=== PATIENT | female | born 1935 | race Caucasian/White ===

== ENCOUNTER 2019-08-02 11:40 | Inpatient (IN) | payer MEDICARE ==
[~2019-08-02] VITALS: Ht 170.2 cm; Wt 104.3 kg
[~2019-08-02 11:40] MED LIST: AMLODIPINE BESYL5 MG PO; DONEPEZIL HCL10 MG PO; FLOMAX0.4 MG PO; KEFLEX500 MG PO; LITHIUM CARBON300 M1 PO; MONTELUKAST SOD10 MG PO; OMEPRAZOLE40 MG PO; QUETIAPINE FUM200 MG PO; ROSUVASTATIN CA10 MG PO; ULTRAM 50MG50 MG PO
--- NOTE | 2019-08-02 13:35 | Diagnostic Imaging Report ---
Portable chest. Medical history: M.D. order. Comparison study: July 23, 2019. Findings: The cardiac silhouette is borderline enlarged. Some prominent soft tissue is seen in the left paratracheal region but this could be positional in nature as it was not present on chest x-ray 1 week prior. No pleural effusion or pneumothorax is seen. There are mild interstitial markings. Degenerative changes are noted. Impression: 1. Prominent soft tissue in the left paratracheal region which could be positional in nature as this was not present on chest x-ray 1 week prior. A PA/lateral radiograph is recommended to confirm. Alternatively, CT scan could be performed. No other significant change. Signed by: Jake Cervantes MD on 08/02/2019 1:33 PM
--- NOTE | 2019-08-02 13:39 | Diagnostic Imaging Report ---
Exam: Head CT without contrast History: Altered mental status Comparison studies: Head CT 07/23/2019. Technique: Axial images were obtained from the skull base to the vertex. Coronal and sagittal images reconstructed from the axial data. Dose modulation, iterative reconstruction, and/or weight based adjustment of the mA/kV was utilized to reduce the radiation dose to as low as reasonably achievable. Radiation dose: Total DLP: 921.4 mGy*cm. Estimated effective dose: DLP x 0.015 Intravenous contrast: None Findings: Exam is somewhat limited by artifacts related to patient motion. In spite of limitations: Scalp: No abnormalities. Bones: No fractures, blastic or lytic lesions. Brain sulci: Appropriate for age. Ventricles: No hydrocephalus. Extra-axial spaces: No masses, no fluid collection. Parenchyma: No mass, acute hemorrhage or acute or chronic cortical insults. Ill-defined and mildly confluent hypodensities in the supratentorial white matter are nonspecific but are most compatible with chronic microvascular ischemic changes Sellar/suprasellar region: No abnormalities. Craniocervical junction: Patent foramen magnum. No Chiari one malformation. Included paranasal sinuses: Clear. Middle ear and included mastoid cavities: Clear. IMPRESSION: 1. No acute intracranial abnormalities. 2. No changes from the prior head CT of 07/23/2019. 3. Mild to moderate chronic microvascular ischemic changes. Signed by: Dr. Salvatore Joya M.D. on 08/02/2019 1:37 PM
[2019-08-02 13:48] LABS: BASOPHILS % 0.3 % (0.0-1.0); EOSINOPHILS # (AUTO) 0.2 (0.0-0.4); EOSINOPHILS % 3.5 % (0.0-6.0); HEMATOCRIT 38.8 % (34.2-44.1); HEMOGLOBIN 12.5 g/dL (12.0-16.0); LYMPHOCYTES # (AUTO) 1.9 (1.0-3.2); LYMPHOCYTES % 28.2 % (18.0-39.1); MEAN CORPUSCULAR HEMOGLOBIN 32.8 pg (28-32); MEAN CORPUSCULAR HGB CONC 32.2 g/dL (31-35); MEAN CORPUSCULAR VOLUME 101.8 fL (81-99); MONOCYTES # (AUTO) 0.5 (0.2-0.8); NEUTROPHILS % 59.8 % (38.7-80.0); PLATELET COUNT 203 x10e3/uL (140-360); RED BLOOD COUNT 3.81 x10e6/uL (3.6-5.1)
[2019-08-02 13:54] LABS: INR 0.93
[2019-08-02 13:55] LABS: PARTIAL THROMBOPLASTIN TIME 29.9 seconds (23.8-35.5)
[2019-08-02 14:03] LABS: ALANINE AMINOTRANSFERASE 10 IU/L (0-55); ALBUMIN 3.9 g/dL (3.5-5.0); ALBUMIN/GLOBULIN RATIO 1.1 (0.8-2.0); ALKALINE PHOSPHATASE 83 IU/L (40-150); BLOOD UREA NITROGEN 17 mg/dL (7-26); BUN/CREATININE RATIO 15 (6-25); CALCIUM 11.6 mg/dL (8.4-10.2); CARBON DIOXIDE 22 mmol/L (22-29); CHLORIDE 106 mmol/L (98-107); CREATINE KINASE 12 IU/L (29-168); CREATININE, SERUM 1.11 mg/dL (0.57-1.11); EST GLOMERULAR FILTRATION RATE 47 ML/MIN (60-); GLUCOSE 104 mg/dL (74-118); MAGNESIUM 2.1 MG/DL (1.3-2.1); SODIUM 139 mmol/L (136-145)
[2019-08-02 14:28] LABS: CLARITY,URINE SL CLOUDY (CLEAR); COLOR,URINE YELLOW (YELLOW); LEUKOCYTE ESTERASE ,URINE TRACE (NEGATIVE); NITRITE,URINE NEGATIVE (NEGATIVE); PROTEIN,URINE DIPSTICK NEGATIVE (NEGATIVE)
[2019-08-02 14:29] LABS: BILIRUBIN,URINE 1+ (NEGATIVE); KETONES,URINE NEGATIVE (NEGATIVE); URINE UROBILINOGEN 0.2 mg/dL (0.2 - 1)
[2019-08-02 14:34] LABS: CREATINE KINASE MB < 1.00 ng/mL (0-4.3)
[2019-08-02 14:40] LABS: AMORPHOUS SEDIMENT,URINE MODERATE (FEW); BACTERIA,URINE MODERATE /HPF; RBC,URINE 0-5 /HPF (0-5); YEAST,URINE MODERATE
--- NOTE | 2019-08-02 16:10 | NUR ---
ENTERED ROOM TO DISCUSS PATIENT HOME MEDS. PT'S HOME MEDS NOT WITH PT. WHEN ASKED FAMILY WAS TOLD "HER MEDS ARE IN THE MEDICAL RECORD" RESTATED QUESTION ASKING ABOUT FAMILY FAMILIARITY WITH PT'S HOME MEDICATION. PT'S FAMILY AGAIN RESPONDED THAT "YOU HAVE HER MEDICAL HISTORY IN HER CHART". ASKED IF THERE WAS ANY CHANGE IN HER SCRIPTS AFTER BEING DISCHARGED FROM THE HOSPITAL AND WAS TOLD NO THERE WAS NO CHANGES. EXPRESSED TO FAMILY THAT IT WAS ALWAYS GOOD PRACTICE TO KNOW HOME MEDICATIONS FOR INSTANCES THAT PATIENT'S MEDICAL CHART IS NOT AVAILABLE. WAS RESPONDED TO BY FAMILY MEMBER "I AM A NURSE, I KNOW THIS"
[2019-08-02] MEDS: DEXTROSE 5%/LACTATED RINGERS 1,000 ML IV SCH (16:15)
--- NOTE | 2019-08-02 18:11 | NUR ---
received patient from ER via stretcher. pt is alert, not oriented. pt's speech is incomprehensible and pt is agitated and combative. pt was transferred from stretcher to bed by the nurse and tech. diaper was applied to patient. iv was wrapped with kurlex to prevent the pt from pulling it. bad safety implemented. daughter is at the bedside
[2019-08-02] MEDS ORDERED: TRAMADOL HCL 50 MG TAB PO PRN (18:15)
--- NOTE | 2019-08-02 19:00 | NUR ---
Received change of shift report from AM nurse. Walking rounds completed.
[2019-08-02] MEDS: QUETIAPINE FUMARATE 100 MG TAB PO SCH (19:03)
[2019-08-02 19:24] VITALS: BP 144/67
[2019-08-02 19:30] VITALS: BP 144/67
[2019-08-02 20:13] VITALS: BP 119/41
[2019-08-02] MEDS: CRESTOR 10MG PO SCH (21:00)
[2019-08-03] VITALS (7 sets, daily range): BP systolic 99–161; BP diastolic 50–78
--- NOTE | 2019-08-03 | NUR ---
Patient very confused. Refused po meds. Get very agitated when touched. Patient turned q 2 hours and prn. Daughter at bedside at this time. Continue monitor.
[2019-08-03] MEDS: DONEPEZIL HCL 5 MG TAB PO SCH (04:34)
--- NOTE | 2019-08-03 05:00 | NUR ---
Patient resting quitly at this time.
[2019-08-03 05:40] LABS: BASOPHILS % 0.3 % (0.0-1.0); EOSINOPHILS # (AUTO) 0.3 (0.0-0.4); EOSINOPHILS % 5.2 % (0.0-6.0); HEMATOCRIT 37.4 % (34.2-44.1); LYMPHOCYTES # (AUTO) 2.2 (1.0-3.2); LYMPHOCYTES % 34.2 % (18.0-39.1); MEAN CORPUSCULAR HEMOGLOBIN 32.9 pg (28-32); MEAN CORPUSCULAR HGB CONC 32.1 g/dL (31-35); MEAN CORPUSCULAR VOLUME 102.5 fL (81-99); MONOCYTES # (AUTO) 0.7 (0.2-0.8); MONOCYTES % 10.7 % (4.4-11.3); NEUTROPHILS # (AUTO) 3.1 (2.1-6.9); NEUTROPHILS % 49.3 % (38.7-80.0); PLATELET COUNT 175 x10e3/uL (140-360); RED BLOOD COUNT 3.65 x10e6/uL (3.6-5.1)
[2019-08-03 06:04] LABS: ALBUMIN 3.4 g/dL (3.5-5.0); ALBUMIN/GLOBULIN RATIO 1.2 (0.8-2.0); ANION GAP 13.2 mmol/L (8-16); CALCIUM 10.8 mg/dL (8.4-10.2); CREATININE, SERUM 1.05 mg/dL (0.57-1.11); POTASSIUM 4.2 mmol/L (3.5-5.1)
--- NOTE | 2019-08-03 07:18 | NUR ---
BEDSIDE SHIFT REPORT RECEIVED FROM ENERGY ADVISOR RN, PT RESTING IN BED, RESPIRATIONS EVEN AND NONLABORED, NO SIGNS OF DISTRESS. ALL SAFETY MEASURES IN PLACE.
[2019-08-03] MEDS: PANTOPRAZOLE SOD 40 MG TABEC PO SCH (07:30)
[2019-08-03] MEDS: TAMSULOSIN HCL 0.4 MG CAP PO SCH (09:00)
[2019-08-03] MEDS: AMLODIPINE BESYLATE 5 MG TAB PO SCH (09:00)
[2019-08-03] MEDS: MONTELUKAST SODIUM 10 MG TAB PO SCH (09:00)
[2019-08-03] MEDS: LITHIUM CARBONATE ER 300 MG TAB PO SCH (09:00)
--- NOTE | 2019-08-03 10:13 | NUR ---
speech pathology at bedside, states pt adamantly refused anything PO. recommended regular thin liquids if pt allows. recommends any essential medicines be given IV at this time. will inform .
--- NOTE | 2019-08-03 10:46 | NUR ---
WOUND CARE CONSULT COMPLETED BY ROWENA RUDD. STATES PT'S SACRAL WOUND IS BLANCHABLE. RECOMMENDS CONTINUING TO TURN PATIENT. NO OTHER INTERVENTIONS RECOMMENDED AT THIS TIME.
--- NOTE | 2019-08-03 10:58 | NUR ---
BEDSIDE BLADDER SCAN SHOWED 0 ML RETAINED URINE; PT VOIDING IN DIAPER. COLOSTOMY EMPTIED, 30 ML OF LIQUID BROWN STOOL NOTED WITH MODERATE AMOUNT OF GAS.
--- NOTE | 2019-08-03 13:21 | NUR ---
WOUND CONSULT FOR 84 YO FEMALE SKIN ASSESSMENT COMPLETE NO INJURIES OR OPEN AREAS NOTED AT THIS TIME RECOMMENDATIONS: NURSING TO CONTINUE TO MAINTAIN MODERATE PUP STATUS AND INTERVENTIONS AND ALTERNATING PRESSURE MATTRESS NURSING TO CONTINUE TO ASSIST PATIENT OUT OF BED TOLERATED NURSING TO CONTINUE TO ASSIST PATIENT TO TURN WHILE IN BED EVERY 2 HOURS Addendum: 08/03/19 at 1324 by Ran Mcdonough RN Amended: Links added.
[2019-08-03] MEDS: LORAZEPAM INJ 2 MG/ML VIAL IV PRN (14:07)
--- NOTE | 2019-08-03 14:11 | NUR ---
pt going down for CT scan; 1mg Ativan given prior to transport. pt left in stable condition.
--- NOTE | 2019-08-03 15:05 | NUR ---
Pt was visited for PT eval but very lethargic from the medication given to her prior to CT scan. Spouse and son requested to let pt sleep for now and for PT to come back tomorrow. Pt had a rough night in the ER yesterday evening. ROWENA Alfaro made aware. Addendum: 08/04/19 at 1656 by Sergio Krishnamurthy PT Amended: Links added.
[2019-08-03] MEDS: HEPARIN SOD (PORCINE) 5,000 UNIT/ML VIAL SC SCH (15:09)
[2019-08-03] MEDS: CEFTRIAXONE SOD 1 GM/NS 50 ML 50 ML IV SCH (15:20)
--- NOTE | 2019-08-03 15:33 | Diagnostic Imaging Report ---
CT of the abdomen and pelvis, without contrast, 08/03/2019. History: Diarrhea, altered mental status. Comparison: None available. Technique: Multidetector CT scanning of the abdomen and pelvis was performed from the level of the lung bases to the inferior pubic rami without intravenous or oral contrast. Coronal and sagittal multiplanar reformations were obtained. RADIATION DOSE: Total DLP: 875 mGy*cm Dose modulation, iterative reconstruction, and/or weight based adjustment of the mA/kV was utilized to reduce the radiation dose to as low as reasonably achievable. Discussion: Examination is limited without contrast. Lung bases: No visualized abnormalities. Abdomen: A small stone is present within the gallbladder. There is no gallbladder wall thickening. The liver, biliary tree, spleen, pancreas, adrenal glands, and kidneys are unremarkable. The abdominal aorta is within normal limits. There is no bowel dilatation. Right lower quadrant ileostomy and left lower quadrant colostomy are present. The ascending and transverse colon are absent. Multiple diverticuli are present within the descending and sigmoid colon without evidence of adjacent inflammation There is no evidence of adenopathy or free fluid. Pelvis: The bladder is unremarkable. The uterus and adnexa are absent. Multiple surgical clips are present within the pelvis bilaterally. There is no evidence of free fluid or adenopathy. Bones and soft tissues: Degenerative changes are present throughout the lumbar spine without evidence of lytic or sclerotic lesion. IMPRESSION: 1. Cholelithiasis. 2. Partial colectomy. Ileostomy and colostomy are both present. Distal colonic diverticulosis is present without evidence of diverticulitis. 3. Status post hysterectomy. Signed by: Dmitriy Ewing on 08/03/2019 3:31 PM
--- NOTE | 2019-08-03 15:41 | Consultation ---
DATE OF CONSULTATION: 08/03/2019 PRIMARY CARE PHYSICIAN: Dr. Dorman. CHIEF COMPLAINT: Altered mental status and generalized weakness. HISTORY OF PRESENT ILLNESS: This is an 84-year-old female with past medical history of hypertension, high cholesterol, bipolar, Alzheimer, and frequent UTI, presented to the ER with complaints of increased altered mental status per spouse at the bedside. The patient is a poor historian and is mumbling. and son are at the bedside and obtained information from them. They reported she has had multiple UTIs, has had bladder suspension for urine retention. He reports that she has not been eating or drinking well and so they brought her to the ER for further evaluation. They denied any fever, chills, nausea, vomiting, or chest pain. Admitted for further evaluation. PAST MEDICAL HISTORY: High cholesterol, hypertension, bipolar, and Alzheimer. PAST SURGICAL HISTORY: She had bladder suspension per family, colon resection with colostomy and ileostomy, and hernia repair and hysterectomy several years ago. FAMILY MEDICAL HISTORY: Reports psychiatric illness in the family. SOCIAL HISTORY: Denies any tobacco, alcohol, or illicit drug use. ALLERGIES: NO KNOWN DRUG ALLERGIES. REVIEW OF SYSTEMS: Unable to obtain due to altered mental status. PHYSICAL EXAMINATION: VITAL SIGNS: Temperature 95.3, pulse is 69, respirations 18, blood pressure 161/71, and pulse ox is 97% on room air. GENERAL: Fatigue. HEENT: Normocephalic and atraumatic. NECK: Supple. LUNGS: Decreased breath sounds. CARDIOVASCULAR: Regular rate and rhythm. GI: Soft and nontender. Colostomy and ileostomy bag in place. NEUROLOGIC: Altered mental status, alert and awake. MUSCULOSKELETAL: Moves extremities, but is very weak and sensitive to touch. SKIN: Dry. PSYCH: Altered mental status. Unable to evaluate. LABORATORY DATA: WBC 6.37, hemoglobin 12.0, hematocrit 37.4, MCV 102.5, and MCH 32.9. Sodium 142, potassium 4.2, BUN is 13, creatinine is 1.05, and estimated GFR 50. AST 29 and ALT 16. BNP is 24.4. Troponin 0.05. Total protein 6.2, albumin 3.4, and globulin 2.8. PT 13.0, INR 0.93, and APTT 29.9. Urine is yellow, slightly cloudy with trace blood and leukocyte esterase with moderate bacteria, amorphous sediment, and yeast. Urine culture is pending as well as blood cultures. Chest x-ray shows prominent soft tissue in the left paratracheal region, which could be positional in nature, as this was not present on chest x-ray one week prior. AP/lateral radiograph is recommended to confirm. Alternatively, CT scan could be performed. No other significant changes. CT brain shows no acute intracranial abnormalities. No changes from prior head CT. [id number] chronic microvascular changes. IMPRESSION AND PLAN: 1. Increased altered mental status. Could be from urinary tract infection versus advanced dementia. CT brain was negative for acute process. Continue on IV fluids and IV antibiotics, Rocephin. 2. Hypertension. We will continue on amlodipine. 3. High cholesterol. We will continue with Crestor. 4. History of bipolar. We will continue on lithium and Seroquel. 5. Poor appetite. Speech therapist has been consulted to evaluate and treat. 6. Deep vein thrombosis prophylaxis. We will order heparin b.i.d. PLAN: To continue IV fluids and we will check CT abdomen and pelvis, as family is concerned she may have abdominal infection. We will await on urine culture as well. Dictated by LADARIUS Keys Promise Clark MD MY/MODL /[id number]
[2019-08-03] MEDS: DEXTROSE 5%/LACTATED RINGERS 1,000 ML IV SCH ×2 (18:40→22:08)
--- NOTE | 2019-08-03 19:53 | NUR ---
Received change of shift report from AM nurse. Walking rounds completed.
[2019-08-03] MEDS: CRESTOR 10MG PO SCH (21:00)
[2019-08-03] MEDS: QUETIAPINE FUMARATE 100 MG TAB PO SCH (21:00)
[2019-08-04] VITALS (7 sets, daily range): BP systolic 114–177; BP diastolic 61–81
--- NOTE | 2019-08-04 | NUR ---
Patient turned q2 hours and PRN. Patient resting quitly with no noted distress.
[2019-08-04] MEDS: HEPARIN SOD (PORCINE) 5,000 UNIT/ML VIAL SC SCH ×2 (00:30→12:18)
--- NOTE | 2019-08-04 05:00 | NUR ---
Patient continue to be confused. Attemp to orientate patient. No noted improvement.
[2019-08-04] MEDS: DONEPEZIL HCL 5 MG TAB PO SCH (05:18)
--- NOTE | 2019-08-04 07:40 | NUR ---
PATIENT IS ALERT TO SELF BUT REMAINS CONFUSED. PATIENT IS IN STABLE CONDITION WITH NO S/S OF RESPIRATORY DISTRESS. NO PAIN VOICED. ILEOSTOMY AND COLOSTOMY NOTED TO ABD WALL.- LIQUID BROWN STOOL NOTED TO RLU BAG. PATIENT HAS A HEALING SACRUM WOUND- BLANCHABLE REDNESS NOTED. AIR PUMP APPLIED TO BED. IV FLUIDS INFUSING. BED ALARM APPLIED AND 3 SIDE RAILS AREA RAISED FOR PATIENT SAFETY. CALL LIGHT IS WITHIN REACH, PATIENT INSTRUCTED TO CALL FOR ASSISTANCE NEEDED.
[2019-08-04] MEDS: AMLODIPINE BESYLATE 5 MG TAB PO SCH (08:44)
[2019-08-04] MEDS: TAMSULOSIN HCL 0.4 MG CAP PO SCH (08:44)
[2019-08-04] MEDS: PANTOPRAZOLE SOD 40 MG TABEC PO SCH (08:44)
[2019-08-04] MEDS: LITHIUM CARBONATE ER 300 MG TAB PO SCH (08:44)
[2019-08-04] MEDS: MONTELUKAST SODIUM 10 MG TAB PO SCH (08:45)
[2019-08-04] MEDS: CEFTRIAXONE SOD 1 GM/NS 50 ML 50 ML IV SCH (12:15)
[2019-08-04] MEDS: DEXTROSE 5%/LACTATED RINGERS 1,000 ML IV SCH (15:39)
--- NOTE | 2019-08-04 17:45 | Progress Note ---
DATE: 08/04/2019 CONSULTING PHYSICIAN: Blanco Yeager MD CHIEF COMPLAINT: Altered mental status and generalized weakness. SUBJECTIVE: The patient is seen in the room, much more alert and awake. Spouse at the bedside. Reports the patient's mentation is slightly improved. Eating better. Denies any nausea, vomiting, chest pain, shortness of breath, fever, or chills. OBJECTIVE: VITAL SIGNS: Temperature 96.7, pulse is 66, respirations 18, blood pressure 143/63, pulse ox is 97% on room air. GENERAL: Fatigue. HEENT: Normocephalic and atraumatic. NECK: Supple. LUNGS: Decreased breath sounds. CARDIOVASCULAR: Regular rate and rhythm. GI: Soft and nontender. Colostomy and ileostomy bag in place. NEUROLOGIC: Alert and awake with altered mental status due to history of dementia and bipolar. MUSCULOSKELETAL: Moves all extremities, but weak. SKIN: Dry. PSYCH: Altered mental status. IMAGING DATA: CT abdomen and pelvis shows cholelithiasis, partial colectomy, ileostomy and colostomy with distal colonic diverticulosis, but no diverticulitis, status post hysterectomy. IMPRESSION: 1. Altered mental status. Now improving. CT brain negative for acute process. Likely due to urinary tract infection. 2. Recurrent urinary tract infections. Urine culture shows gram-negative rods and yeast. We will continue on Rocephin and await on final cultures. 3. Hypertension. Continue on amlodipine. 4. High cholesterol. We will continue on Crestor. 5. History of bipolar. We will continue on lithium and Seroquel. 6. Poor appetite/dysphagia. Speech therapist has evaluated her and recommend pureed diet and thin liquids, which we will continue. 7. Debility. Physical Therapy has been consulted to evaluate and treat. 8. History of dementia. We will continue with home medications. 9. Deep vein thrombosis prophylaxis. We will continue on heparin b.i.d. subcu. PLAN: Plan is to continue with IV fluids and IV antibiotics. Await on final urine cultures and recommend Psych eval here or outpatient. Dictated by LADARIUS Keys Promise Clark MD MY/MODL /[id number]
--- NOTE | 2019-08-04 19:17 | NUR ---
PATIENT RESTING IN BED- TURNED TO HER RIGHT SIDE. PATIENT REMAINS IN STABLE CONDITION WITH NO S/S OF RESPIRATORY DISTRESS. PAIN MEDICATION GIVEN RECENTLY. IV FLUIDS INFUSING. TELEMETRY APPLIED. ALLEVYN PAD AND DIAPER APPLIED. BED ALARM APPLIED. CALL LIGHT IS WITHIN REACH, PATIENT INSTRUCTED TO CALL FOR ASSISTANCE NEEDED. BEDSIDE SHIFT REPORT GIVEN TO ONCOMING NURSE.
--- NOTE | 2019-08-04 19:38 | NUR ---
Received change of shift report from AM nurse. Walking rounds completed.
[2019-08-04] MEDS: QUETIAPINE FUMARATE 100 MG TAB PO SCH (21:00)
[2019-08-04] MEDS: CRESTOR 10MG PO SCH (21:00)
[2019-08-05] VITALS (8 sets, daily range): BP systolic 113–156; BP diastolic 58–95
--- NOTE | 2019-08-05 | NUR ---
Patient turned q 2 hours and prn. Continue to be confused but shows some improvement.
[2019-08-05] MEDS: HEPARIN SOD (PORCINE) 5,000 UNIT/ML VIAL SC SCH ×2 (00:27→13:12)
[2019-08-05] MEDS: DONEPEZIL HCL 5 MG TAB PO SCH (05:44)
--- NOTE | 2019-08-05 07:25 | NUR ---
PATIENT IS IN STABLE CONDITION WITH NO S/S OF RESPIRATORY DISTRESS- NO PAIN VOICED. IV FLUIDS INFUSING. ALLEVYN PAD APPLIED TO SACRUM/BUTTOCK AREA. PATIENT TURNED TO HER LEFT SIDE. BED ALARM APPLIED. CALL LIGHT IS WITHIN REACH, PATIENT INSTRUCTED TO CALL FOR ASSISTANCE NEEDED.
[2019-08-05] MEDS: TAMSULOSIN HCL 0.4 MG CAP PO SCH (08:38)
[2019-08-05] MEDS: LITHIUM CARBONATE ER 300 MG TAB PO SCH (08:38)
[2019-08-05] MEDS: MONTELUKAST SODIUM 10 MG TAB PO SCH (08:38)
[2019-08-05] MEDS: AMLODIPINE BESYLATE 5 MG TAB PO SCH (08:38)
[2019-08-05] MEDS: PANTOPRAZOLE SOD 40 MG TABEC PO SCH (08:38)
--- NOTE | 2019-08-05 11:14 | NUR ---
Went to pt room for home health choice. Pt confused, and nurse at bedside. CM then attempted to call pt Thai Guerra [phone]. No answer. Will attempt to reach again later today. Pt already has [facility].
[2019-08-05] MEDS: CEFTRIAXONE SOD 1 GM/NS 50 ML 50 ML IV SCH (13:11)
--- NOTE | 2019-08-05 16:04 | Progress Note ---
DATE: 08/05/2019 CHIEF COMPLAINT: Altered mental status and generalized weakness. SUBJECTIVE: The patient is continuing to improve with her mentation. Family at bedside. She is eating more and denies any pain, shortness of breath, fever, chills, nausea, or vomiting. OBJECTIVE: VITAL SIGNS: Temperature 97.0, pulse is 69, respirations 16, blood pressure 121/60, and pulse ox is 95% on room air. GENERAL: Fatigue. HEENT: Normocephalic, atraumatic. NECK: Supple. LUNGS: Decreased breath sounds. CARDIOVASCULAR: Regular rate and rhythm. GI: Soft and nontender. Colostomy and ileostomy bag in place. NEUROLOGY: Alert, awake, and oriented x1 to 2. Has baseline dementia. MUSCULOSKELETAL: Moves all extremities, but weak. SKIN: Dry. IMPRESSION: 1. Increased altered mental status, likely due to urinary tract infection. CT brain negative for acute process. We will continue with antibiotics, improving mentation. 2. Recurrent urinary tract infection. Urine culture shows gram-negative rods. Awaiting on identification and sensitivity. We will continue with Rocephin. 3. Hypertension. Continue amlodipine. 4. High cholesterol. Continue on Crestor. 5. History of bipolar. Continue lithium and Seroquel. We will check lithium level in a.m. 6. Poor appetite/dysphagia. Swallowing test done per Speech, recommends pureed. 7. History of dementia. We will resume home medication and have Psych evaluate her. 8. Debility. PT to evaluate and treat. 9. Deep vein thrombosis prophylaxis. We will continue with heparin subcu. PLAN: Continue IV fluids and IV antibiotics. Awaiting on Psych eval and Case Management consulted for home PT/OT. Dictated by LADARIUS Keys Promise Clark MD MY/MODL /[id number]
[2019-08-05] MEDS: DEXTROSE 5%/LACTATED RINGERS 1,000 ML IV SCH ×2 (17:42→20:17)
--- NOTE | 2019-08-05 19:24 | NUR ---
PATIENT IN STABLE CONDITION WITH NO S/S OF RESPIRATORY DISTRESS. NO PAIN VOICED. IV FLUIDS INFUSING. TELEMETRY APPLIED. ALLEVYN PAD AND DIAPER APPLIED. BED ALARM APPLIED. PRESENT IN ROOM. CALL LIGHT IS WITHIN REACH, PATIENT INSTRUCTED TO CALL FOR ASSISTANCE NEEDED. BEDSIDE SHIFT REPORT GIVEN TO ONCOMING NURSE.
[2019-08-05] MEDS: CRESTOR 10MG PO SCH (20:17)
[2019-08-05] MEDS: QUETIAPINE FUMARATE 100 MG TAB PO SCH (20:17)
[2019-08-06] VITALS (9 sets, daily range): BP systolic 137–160; BP diastolic 63–89
[2019-08-06] MEDS: HEPARIN SOD (PORCINE) 5,000 UNIT/ML VIAL SC SCH ×2 (00:49→12:30)
--- NOTE | 2019-08-06 05:29 | NUR ---
2200: Received patient as an add on from another nurse. patient confused but calm, no agitation at this time.
[2019-08-06] MEDS: DONEPEZIL HCL 5 MG TAB PO SCH (05:48)
[2019-08-06 06:12] LABS: ALBUMIN 3.4 g/dL (3.5-5.0); ALBUMIN/GLOBULIN RATIO 1.2 (0.8-2.0); ANION GAP 12.9 mmol/L (8-16); CALCIUM 10.7 mg/dL (8.4-10.2); CREATININE, SERUM 0.99 mg/dL (0.57-1.11); POTASSIUM 3.9 mmol/L (3.5-5.1)
--- NOTE | 2019-08-06 07:00 | NUR ---
Patient endorsed to next shift for continuity of care.
--- NOTE | 2019-08-06 07:25 | NUR ---
PT UP IN BED AWAKE CONFUSED,NO S/S DISCOMFORT.
[2019-08-06] MEDS: FLUCONAZOLE 100 MG TAB PO SCH (08:57)
[2019-08-06] MEDS: PANTOPRAZOLE SOD 40 MG TABEC PO SCH (08:58)
[2019-08-06] MEDS: TAMSULOSIN HCL 0.4 MG CAP PO SCH (08:58)
[2019-08-06] MEDS: MONTELUKAST SODIUM 10 MG TAB PO SCH (08:58)
[2019-08-06] MEDS: AMLODIPINE BESYLATE 5 MG TAB PO SCH (08:58)
[2019-08-06] MEDS: LITHIUM CARBONATE ER 300 MG TAB PO SCH (08:58)
--- NOTE | 2019-08-06 10:30 | NUR ---
IV LEAKING ,ATTEMOPTED X1,M.SOCIOLOGY PROFESSOR TRYING TO RESTART.
[2019-08-06] MEDS: LORAZEPAM INJ 2 MG/ML VIAL IV PRN (12:13)
--- NOTE | 2019-08-06 12:13 | NUR ---
PT VERY AGITATED ,YELLING,MEDICATED
--- NOTE | 2019-08-06 12:37 | Progress Note ---
DATE: 08/06/2019 CHIEF COMPLAINT: Altered mental status and generalized weakness. SUBJECTIVE: The patient is in bed with no acute distress. Mentation is improving. Family at bedside. She denies any pain, shortness of breath, nausea, or vomiting. OBJECTIVE: VITAL SIGNS: Temperature 97.7, pulse is 78, respirations 18, blood pressure 158/66, and pulse ox is 99% on room air. GENERAL: No acute distress, fatigued. HEENT: Normocephalic and atraumatic. NECK: Supple. LUNGS: Decreased breath sounds. CARDIOVASCULAR: Regular rate and rhythm. GI: Soft and nontender. Colostomy bag in place. NEUROLOGIC: Alert, awake, and oriented x1-2, forgetful with underlying dementia. MUSCULOSKELETAL: Moves all extremities, but weak. SKIN: Dry. Sacral pressure ulcer noted. LABORATORY DATA: Sodium 144, potassium 3.9, carbon dioxide 84, BUN is 5, creatinine 0.99, and calcium is 10.7. [place] is pending. IMPRESSION: 1. Increased altered mental status, likely due to urinary tract infection. CT brain was negative. Mentation is improving back to her baseline. 2. Recurrent urinary tract infection. Urine culture shows and yeast. We will continue with Rocephin and Diflucan started. 3. Hypertension. Continue amlodipine. 4. High cholesterol. Continue Crestor. 5. History of bipolar. Continue lithium and Seroquel, pending lithium level. Psych has also been consulted for evaluation. 6. Poor appetite/dysphagia. Speech had recommended pureed. We will re-evaluate to see if we can advance her diet. 7. History of dementia. We will resume home medication. 8. Debility. PT to evaluate and treat. Home health also consulted for home PT/OT. 9. Deep vein thrombosis prophylaxis. We will continue on heparin subcutaneous. PLAN: Continue IV fluids and IV antibiotics. Awaiting on psych evaluation. Dictated by LADARIUS Keys Simaching Aryan Clark MD MY/MODL /[id number]
[2019-08-06] MEDS: CEFTRIAXONE SOD 1 GM/NS 50 ML 50 ML IV SCH (13:00)
[2019-08-06] MEDS ORDERED: LORAZEPAM INJ 2 MG/ML VIAL IV PRN (13:15)
--- NOTE | 2019-08-06 14:00 | NUR ---
PT RESTING ,NO AGITATION NOTED
--- NOTE | 2019-08-06 18:00 | NUR ---
PT TRANSPORTED TO XRAY VIA BED
--- NOTE | 2019-08-06 18:38 | Diagnostic Imaging Report ---
EXAMINATION: PA and lateral views of the chest. COMPARISON: August 02, 2019 CLINICAL HISTORY: Pneumonia DISCUSSION: Lines/tubes: None. Lungs: The lungs are well inflated and clear. No pneumonia or pulmonary edema. Pleura: There is no pleural effusion or pneumothorax. Heart and mediastinum: Prominent heart size and central pulmonary vasculature. Prior left paratracheal soft tissue density not visualized currently. Bones and soft tissues: No acute bony abnormalities. IMPRESSION: No acute cardiopulmonary abnormalities. Signed by: Dr. Aryan Barrios M.D. on 08/06/2019 6:35 PM
--- NOTE | 2019-08-06 19:15 | NUR ---
Patient visited in room during nursing rounds. Patient alert and oriented x1. On IVF (D5LR at 50ml/hr). No distress or discomfort noted. Ileostomy on left quadrant abd and lower mid abdomen is the colostomy both draining dark brown loose stools. More stools noted on colostomy bag. Pt extremely weak especially on BLE. On bedrest at this time. Diapered due to incontinence. Will monitor closely. Bed alarm active. Call bates within reach.
--- NOTE | 2019-08-06 19:48 | Consultation ---
DATE OF CONSULTATION: 08/06/2019 Psychiatric Consultation REASON FOR CONSULTATION: The patient was admitted for altered mental status. HISTORY OF PRESENT ILLNESS: The patient is an 84-year-old female, admitted to the hospital for altered mental status and urinary retention. As per medical record, the patient has history of high cholesterol, hypertension, bipolar, and alzheimer. Upon evaluation today, the patient is found to be in the room. She is lying in the bed. Her son and and has quite a lot of family members in the room. The patient is oriented to self, but does not know where she is. She is pleasantly confused at this time. She received p.r.n. IV Ativan earlier today. The patient is unable to provide further information. Her son and are in the room and helped provide most of information. As per the family members, the patient has long history of bipolar and see Dr. Ellis, but he since retired and they are looking for a psychiatrist. She has never attempted suicide. She does not drink alcohol or use any drugs. She was admitted to the hospital 4 days ago and since hospitalization, she has improved. At baseline, she is able to walk, ambulate, and she is able to have a conversation normally. She had in the past UTI and will get confused. Family member claims that the patient had been taking Seroquel in late p.m. and at one point, the psychiatrist wanted to discontinue lithium, but she went to the hospital for that. The patient does not eat much due to the food here. She does not have an issue with sleep. She does not have any hallucinations as per them. She is anxious and tremorous and claims she is afraid, but unable to elaborate for them. They do not think she is depressed. The patient at time is anxious and trying to get out of the bed as per family. They want something for the anxiety. They are also requesting Dr. Gee. PAST PSYCHIATRIC HISTORY: The patient gives history of bipolar for at least 10 years. She has never attempted suicide. Does not drink alcohol or use any drugs. FAMILY HISTORY: None. SOCIAL HISTORY: The patient lives with her . MENTAL STATUS EXAM: The patient is an elderly female. She is alert, awake, and oriented to self. Mood is anxious. Affect is blunt. Psychomotor state is passive. Denies any suicidal or homicidal ideation. Denies any hallucination. Thought process is loose. Insight and judgment are poor and limited. Memory appears to be grossly impaired. CURRENT MEDICATIONS: 1. Ativan 1 IV q.6 hours as needed. 2. [place] 300 mg p.o. daily. 3. Flomax. 4. Protonix. 5. Singulair. 6. Norvasc. 7. Diflucan. 8. Aricept 10 mg p.o. daily. 9. Heparin. 10. Crestor. 11. Seroquel 200 mg p.o. at bedtime. 12. Dextrose/lactate Ringer. 13. Ceftriaxone. 14. Tramadol. CURRENT LABORATORY DATA: WBC 6.37, RBC 3.65, hemoglobin 12, hematocrit 37.4, and platelets 175. Sodium 144, potassium 3.9, chloride 101, CO2 24, BUN 5, and creatinine 0.99. AST 34 and ALT 28. ASSESSMENT: 1. Unspecified psychosis/delirium, multifactorial. 2. Alzheimer disease history of. 3. History of bipolar. PLAN: 1. Continue with lithium as per family request. 2. Continue with Seroquel 200 mg p.o. at bedtime as per family request. 3. Reduce Ativan 1 mg IV q.6 hours as needed to 0.5 IV q.6 hours as needed. 4. Add Ativan 0.5 mg p.o. q.6 hours as needed. 5. Monitor for mood and agitation. 6. Discussed with nursing staff and family members. Thank you for this consultation. We will continue to follow her during her hospital stay. Dictated by Sayda Alvarado PA-C Pillo Gee MD QTV/MODL /[id number]
[2019-08-06] MEDS: LORAZEPAM 0.5 MG TAB PO PRN (21:44)
[2019-08-06] MEDS: QUETIAPINE FUMARATE 100 MG TAB PO SCH (21:44)
[2019-08-06] MEDS: CRESTOR 10MG PO SCH (21:44)
[2019-08-07] MEDS: HEPARIN SOD (PORCINE) 5,000 UNIT/ML VIAL SC SCH ×2 (00:34→12:30)
[2019-08-07 04:10] VITALS: BP 132/63
[2019-08-07] MEDS: DONEPEZIL HCL 5 MG TAB PO SCH (06:30)
[2019-08-07] MEDS: PANTOPRAZOLE SOD 40 MG TABEC PO SCH (06:30)
[2019-08-07] MEDS: DEXTROSE 5%/LACTATED RINGERS 1,000 ML IV SCH ×2 (06:32→12:16)
--- NOTE | 2019-08-07 07:30 | NUR ---
pt up in bed ,very confused,denies pain,
[2019-08-07 07:43] VITALS: BP 137/81
[2019-08-07] MEDS: AMLODIPINE BESYLATE 5 MG TAB PO SCH (08:46)
[2019-08-07] MEDS: TAMSULOSIN HCL 0.4 MG CAP PO SCH (08:46)
[2019-08-07] MEDS: MONTELUKAST SODIUM 10 MG TAB PO SCH (08:46)
[2019-08-07] MEDS: LITHIUM CARBONATE ER 300 MG TAB PO SCH (08:46)
[2019-08-07] MEDS: FLUCONAZOLE 100 MG TAB PO SCH (08:46)
[2019-08-07 11:46] VITALS: BP 156/68
--- NOTE | 2019-08-07 12:18 | NUR ---
paged dr calle re; admission
[2019-08-07] MEDS: CEFTRIAXONE SOD 1 GM/NS 50 ML 50 ML IV SCH (13:00)
--- NOTE | 2019-08-07 13:00 | NUR ---
DR RIVER HERE NO NEW ORDERS DID STATE OK FOR PT TO BE DISCHARGED WHEN PSYCH OK WITH IT.
[2019-08-07 15:45] VITALS: BP 156/68
--- NOTE | 2019-08-07 16:07 | NUR ---
SPOKE WITH DR DONITA VASQUEZ RE; DISCHARGE .STATED HE WAS GOING TO [facility] HER MEDICATION AND SEEE HOW SHE DOES OVERNIGHT.NEEDS TO [place] ONE MORE DAY,
[2019-08-07] MEDS ORDERED: HALOPERIDOL LACTATE 5 MG/ML VIAL IM PRN (17:15)
[2019-08-07] MEDS ORDERED: QUETIAPINE FUMARATE 25 MG TAB PO PRN (17:15)
[2019-08-07] MEDS ORDERED: LORAZEPAM INJ 2 MG/ML VIAL IM PRN (17:15)
--- NOTE | 2019-08-07 18:31 | NUR ---
CM MET W THE AND THE BEDSIDE. PT WAS ASLEEP. CHOICE SIGNED FOR [facility] @ OFF[facility]: [phone] / FAX: [phone]. STATES THE DOC TOLD HIM THE PT WOULD BE IN THE HOSPITAL A COUPLE OF MORE DAYS FOR MED MGMT. CHOICE LETTER TO CHART.
--- NOTE | 2019-08-07 19:04 | Progress Note ---
DATE: 08/07/2019 CHIEF COMPLAINT: Altered mental status, poor p.o. intake, and generalized weakness. SUBJECTIVE: The patient is much more alert and awake, she is with no acute distress. No shortness of breath, chest pain, nausea, or vomiting. Tolerating p.o. OBJECTIVE: VITAL SIGNS: Temperature 96.7, pulse is 76, respirations 18, blood pressure 156/68, and pulse ox is 98% on room air. GENERAL: No acute distress, fatigued. HEENT: Normocephalic and atraumatic. NECK: Supple. LUNGS: With decreased breath sounds. CARDIOVASCULAR: Regular rate and rhythm. GI: Soft and nontender. Colostomy bag in place. NEUROLOGIC: Alert, awake, and oriented x1-2. Forgetful with underlying dementia. MUSCULOSKELETAL: Moves all extremities, but weak. SKIN: Dry with pressure ulcer. IMPRESSION: 1. Increased altered mental status. Likely due to urinary tract infection. CT brain was negative. Mentation is improving back to her baseline. 2. Recurrent urinary tract infections. Urine culture shows Stenotrophomonas maltophilia and Crystal tropicalis. We will continue on Rocephin and Diflucan per sensitivity. 3. Hypertension. Continue on amlodipine. 4. High cholesterol. On Crestor. 5. History of bipolar. On lithium and Seroquel. Pending lithium level. Psych has been consulted and we will adjust medications further. 6. Poor appetite and dysphagia. Currently on pureed diet per Speech. Improving appetite. 7. History of dementia. We will resume home medications. 8. Debility. PT to evaluate and treat. Home health for PT/OT. 9. Deep vein thrombosis prophylaxis. We will continue on heparin subcutaneous. 10. Hypercalcemia. We will continue with IV fluids and repeat labs in a.m. PLAN: To continue with IV fluids and antibiotics. Continue PT/OT and further recommendations per Psych. Dictated by LADARIUS Keys Promise Clark MD MY/MODL /[id number]
[2019-08-07 19:56] VITALS: BP 135/66
--- NOTE | 2019-08-07 20:19 | Consultation ---
DATE OF CONSULTATION: 08/07/2019 Psychiatric Consultation SUBJECTIVE: The patient evaluated by Dr. Gee. The patient was seen by Dr. Gee and the family member spoke to him. The patient is oriented to situation. She is doing better. She is oriented to place as well. Her speech is poor. She is eating fair. Family members after discussion with Dr. Gee, has agreed to discontinue lithium. ASSESSMENT: 1. Unspecified psychosis/delirium, multifactorial. 2. Alzheimer disease history of. 3. History of bipolar. PLAN: 1. To discontinue lithium and family agreed. 2. Continue with Seroquel 200 mg p.o. at bedtime. 3. Add Seroquel 50 mg p.o. every 6 hours as needed. 4. Change Ativan 0.5 mg IV every 6 hours as needed to 0.5 mg IM every 6 hours as needed. 5. Continue Ativan 0.5 mg p.o. every 6 hours as needed. 6. Add Haldol 2 mg IM every 6 hours as needed. 7. Continue Aricept. 8. Monitor for mood, agitation, and confusion. 9. Discuss with family members. Thank you for this consultation. Dictated by Sayda Alvarado PA-C Pillo Gee MD QTV/MODL /[id number]
[2019-08-07] MEDS: LORAZEPAM 0.5 MG TAB PO PRN (21:10)
[2019-08-07] MEDS: CRESTOR 10MG PO SCH (21:10)
[2019-08-07] MEDS: QUETIAPINE FUMARATE 100 MG TAB PO SCH (21:10)
--- NOTE | 2019-08-07 21:10 | NUR ---
Patient appear to be agitated and wants to get out of bed. Pt given Ativan 0.5mg PO. Will monitor patient's behavior.
[2019-08-08] VITALS (8 sets, daily range): BP systolic 112–162; BP diastolic 55–75
[2019-08-08] MEDS: HEPARIN SOD (PORCINE) 5,000 UNIT/ML VIAL SC SCH ×2 (00:06→13:28)
--- NOTE | 2019-08-08 00:40 | NUR ---
Patient still trying to get up and out of bed and very agitated. Pt given Haldol 2mg IM as ordered in E-MAR. Will continue to monitor patient's behavior.
--- NOTE | 2019-08-08 01:00 | NUR ---
Patient asleep and appear to be comfortable.
[2019-08-08 05:58] LABS: ALBUMIN 3.4 g/dL (3.5-5.0); ALBUMIN/GLOBULIN RATIO 1.1 (0.8-2.0); CALCIUM 11.1 mg/dL (8.4-10.2); CREATININE, SERUM 1.01 mg/dL (0.57-1.11)
[2019-08-08] MEDS: DONEPEZIL HCL 5 MG TAB PO SCH (06:38)
[2019-08-08] MEDS: PANTOPRAZOLE SOD 40 MG TABEC PO SCH (06:38)
--- NOTE | 2019-08-08 07:10 | NUR ---
Received patient lying in bed with eyes open. Respiration even and unlabored without SOB. Call light in reach.
[2019-08-08] MEDS: DEXTROSE 5%/LACTATED RINGERS 1,000 ML IV SCH (08:16)
[2019-08-08] MEDS: MONTELUKAST SODIUM 10 MG TAB PO SCH (10:23)
[2019-08-08] MEDS: FLUCONAZOLE 100 MG TAB PO SCH (10:23)
[2019-08-08] MEDS: TAMSULOSIN HCL 0.4 MG CAP PO SCH (10:23)
[2019-08-08] MEDS: AMLODIPINE BESYLATE 5 MG TAB PO SCH (10:23)
[2019-08-08] MEDS: CEFTRIAXONE SOD 1 GM/NS 50 ML 50 ML IV SCH (13:29)
--- NOTE | 2019-08-08 16:43 | NUR ---
Nutrition Intervention Note RD Recommendation(s) for Physician: Continue Ensure pudding and Ensure Enlive as ordered Recommend regular diet and consistency per ST Plan of Care: RD following, monitoring for tolerance and adequacy Nutrition reason for involvement: Length of stay RD Assessment (08/08/19) Pt was admitted with AMS. Spoke with family members and pt. It is noted that pt is currently consuming 50-75% of meals. Pt has been drinking nutrition supplements ordered. Family member reported pt had lost 15-20 lbs since April and had weighed 230 lbs. However, pt currently has a weight of [address] evaluated pt and recommended a pureed diet due to decreased oral skills. No N/V noted and pt is tolerating diet consistency. Will continue to monitor. Principal Problems/Diagnoses: AMS PMH: high cholesterol, HTN, bipolar, Alzheimers GI: last recorded BM 08/08 Skin: no injuries or open areas per wound care Labs: Na 147 Meds: heparin, protonix Ht: 67 inches Wt: 230 lbs BMI: 36 kg/m2 IBW: 135 lbs Malnutrition Evaluation (08/08/2019) The patient does not meet criteria for a specified degree of malnutrition at this time. Will re-evaluate at follow-up as appropriate. Nutrition Prescription (Diet Order): Renal/pureed diet Estimated Nutritional Needs: 2806-9670 calories/day (22-25 kcal/kg IBW) 92-123 g protein/day (1.5-2 g pro/kg IBW) Diet Adequacy: Pt is currently consuming 50-75% of meals Tolerance: Tolerating PO Diet Education Needs Assessment: Diet education not indicated Nutrition Care Level: low Nutrition Diagnosis: Swallowing difficulty related to decreased oral skills as evidenced by need for modified consistency diet. Goal: Patient will meet 75-100% of estimated needs by follow up Progress: N/A Interventions: -General healthful diet, textured- modified diet, Commercial beverage, Commercial food, Recommended Modifications Monitoring/Evaluation: -Total energy intake, Total protein intake, Modified diet, Liquid supplement, Weight change Signed: Amena Contreras RD, LD
--- NOTE | 2019-08-08 18:09 | Progress Note ---
DATE: 08/08/2019 CHIEF COMPLAINT: Altered mental status, poor p.o. intake and generalized weakness. SUBJECTIVE: The patient is more sleepy today, but tolerating her diet. Eating about 50% of her meals. She denies any shortness of breath, chest pain, nausea, or vomiting. OBJECTIVE: VITAL SIGNS: Temperature 97.9, pulse is 78, respirations 20, blood pressure 124/67, pulse ox is 98% on room air. GENERAL: Fatigue, generalized weakness. HEENT: Normocephalic, atraumatic. NECK: Supple. LUNGS: With decreased breath sounds. CARDIOVASCULAR: Regular rate and rhythm. GI: Soft and nontender. Colostomy bag in place. NEUROLOGY: Alert, awake and oriented x1-2. Forgetful. Mentation is altered due to dementia. MUSCULOSKELETAL: Moves all extremities. SKIN: Dry. Pressure ulcer in the sacrum. PSYCH: Calm. LABORATORY DATA: Sodium 147, potassium 4.0, chloride 27, BUN is 10, creatinine is 1.01, estimated GFR 52, calcium 11.1. IMPRESSION: 1. Increased altered mental status. Now improving back to her baseline. Likely due to urinary tract infection. 2. Recurrent urinary tract infection. Urine culture noted. Continue on Rocephin and Diflucan per sensitivity. Urology on the case. 3. Hypertension. Continue amlodipine. 4. High cholesterol. On Crestor. 5. History of bipolar, lithium has been discontinued and is on Seroquel. Psych has been consulted for medication evaluation. 6. Poor appetite and dysphagia. Currently on pureed diet, improving appetite. 7. History of dementia. Started on donepezil. 8. Hypercalcemia. We will continue with IV fluids and advised to increase p.o. water intake. 9. Debility. PT to evaluate and treat. Home health for PT, OT. 10. Deep vein thrombosis prophylaxis. We will continue with heparin subcu. PLAN: Continue with IV fluids and antibiotics. PT, OT, and further recommendation per Psych. Dictated by LADARIUS Keys Promise Clark MD MY/MODL /[id number]
--- NOTE | 2019-08-08 19:27 | NUR ---
Report given to infrastructure design engineer. Respiration even and unlabored without SOB. Call light in reach.
--- NOTE | 2019-08-08 20:20 | NUR ---
RECEIVED PT IN BED AOX2 .RESPIRATIONS ARE EVEN AND UNLABORED .PT HAS COLOSTOMY AND ILEOSTOMY .LEFT AC 20 G D5W LR AT 50 CC/HR .TELE #21 AT SR .CALL LIGHT WITH IN REACH FAMILY AT THE BEDSIDE .CONTINUE TO MONITOR
--- NOTE | 2019-08-08 21:29 | Progress Note ---
DATE: 08/08/2019 Psychiatric Progress Note SUBJECTIVE: The patient is evaluated and events noted. The patient is in the room. She is doing better. The patient received Haldol injection last night and nursing staff claims that she slept all night. The patient is oriented to self discussed with her family members, nursing staff, and Dr. Gee. ASSESSMENT: 1. Unspecified psychosis/delirium, multifactorial. 2. Alzheimer's disease history of. 3. History of bipolar. 4. Continue with Seroquel 50 mg p.o. q.6 hours as needed. 5. Continue Haldol 2 mg IM q.6 hours p.r.n. 6. Continue Ativan 0.5 mg p.o. q.6 hours p.r.n. 7. Increase Seroquel from 200 mg p.o. at bedtime to 250 mg p.o. at bedtime. 8. Continue Ativan p.r.n. IM. 9. Change the Aricept 10 mg p.o. daily to at bedtime starting tomorrow. 10. Monitor for psychosis. Dictated by Sayda Alvarado PA-C Pillo Gee MD QTV/MODL /[id number]
[2019-08-08] MEDS: CRESTOR 10MG PO SCH (21:42)
[2019-08-08] MEDS: QUETIAPINE FUMARATE 100 MG TAB PO SCH (21:43)
[2019-08-08] MEDS: LORAZEPAM 0.5 MG TAB PO PRN (21:44)
[2019-08-09] VITALS (8 sets, daily range): BP systolic 120–152; BP diastolic 56–81
[2019-08-09] MEDS: HEPARIN SOD (PORCINE) 5,000 UNIT/ML VIAL SC SCH ×2 (00:30→12:44)
[2019-08-09] MEDS: DEXTROSE 5%/LACTATED RINGERS 1,000 ML IV SCH (04:16)
--- NOTE | 2019-08-09 06:37 | NUR ---
PT RESTING COLOSTOMY AND ILEOSTOMY INTACT .DENIES PAIN .CALL LIGHT WITHIN REACH CONTINUE TO MONIUTOR
--- NOTE | 2019-08-09 07:43 | NUR ---
BEDSIDE REPORT GIVEN TO THE ONCOMING NURSE
--- NOTE | 2019-08-09 07:50 | NUR ---
PATIENT IS ALERT TO SELF- PATIENT IS IN STABLE CONDITION WITH NO S/S OF RESPIRATORY DISTRESS. NO PAIN VOICED. HEALING WOUND TO SACRUM AREA. BED ALARM APPLIED. CALL LIGHT IS WITHIN REACH, PATIENT INSTRUCTED TO CALL FOR ASSISTANCE NEEDED.
[2019-08-09] MEDS: AMLODIPINE BESYLATE 5 MG TAB PO SCH (09:51)
[2019-08-09] MEDS: MONTELUKAST SODIUM 10 MG TAB PO SCH (09:51)
[2019-08-09] MEDS: FLUCONAZOLE 100 MG TAB PO SCH (09:51)
[2019-08-09] MEDS: PANTOPRAZOLE SOD 40 MG TABEC PO SCH (09:51)
[2019-08-09] MEDS: TAMSULOSIN HCL 0.4 MG CAP PO SCH (09:51)
[2019-08-09] MEDS: CEFTRIAXONE SOD 1 GM/NS 50 ML 50 ML IV SCH (12:46)
--- NOTE | 2019-08-09 17:50 | Progress Note ---
DATE: 08/09/2019 An 84-year-old female. CHIEF COMPLAINT: Altered mental status, poor p.o. intake, and generalized weakness. SUBJECTIVE: The patient is resting in bed with no acute distress. She is eating better, no complaints overnight. No chest pain, nausea, or vomiting. OBJECTIVE: VITAL SIGNS: Temperature 96.1, pulse is 77, respirations 19, blood pressure 120/56, pulse ox 97% on room air. GENERAL: Fatigue and generalized weakness. HEENT: Normocephalic, atraumatic. NECK: Supple. LUNGS: With decreased breath sounds. CARDIOVASCULAR: Regular rate and rhythm. GI: Soft and nontender. Colostomy bag in place. NEUROLOGIC: Alert, awake, oriented to x1 to x2. Dementia at baseline. MUSCULOSKELETAL: Moves all extremities. SKIN: Dry pressure. Pressure ulcer in the sacrum. PSYCH: Calm. IMPRESSION: 1. Increased altered mental status, now improving, likely due to urinary tract infection. CT brain negative. 2. Recurrent urinary tract infection. Urine culture is positive for Stenotrophomonas maltophilia and Crystal tropicalis. Continue on Rocephin and Diflucan. 3. Hypertension. Continue amlodipine. 4. High cholesterol. On Crestor. 5. History of bipolar. Psych has been consulted and has been off lithium. 6. Poor appetite and dysphagia. Currently on pureed diet, improving appetite. 7. History of dementia. Continue on donepezil. 8. Hypercalcemia. Likely due to poor p.o. intake. We will continue with IV fluids and encourage to increase p.o. water intake. 9. Debility. Continue PT and home health for PT/OT has been consulted. 10. Deep venous thrombosis prophylaxis. We will continue heparin subcu. PLAN: Continue with IV fluids and antibiotics. PT to help with getting out of bed. Further recommendations per Psych. Medically stable. Dictated by LADARIUS Keys Promise Clark MD MY/MODL /[id number]
--- NOTE | 2019-08-09 19:24 | NUR ---
PATIENT IS IN STABLE CONDITION WITH NO S/S OF RESPIRATORY DISTRESS. NO PAIN VOICED. IV FLUIDS INFUSING. ALLEVYN PAD APPLIED. PATIENT TURNED TO HER SIDE. BED ALARM APPLIED; 3 RAILS RAISED. PRESENT IN THE ROOM. CALL LIGHT IS WITHIN REACH, PATIENT INSTRUCTED TO CALL FOR ASSISTANCE NEEDED. BEDSIDE SHIFT REPORT GIVEN TO ONCOMING NURSE.
--- NOTE | 2019-08-09 20:02 | NUR ---
RECEIVED PT IN BED AOX2 .RESPIRATIONS ARE EVEN AND UNLABORED .COLOSTOMY AND [id number] . INTACT .TELE #[address] .CALL LIGHT WITH IN REACH FAMILY AT THE BEDSIDE .CONTINUE TO MONITOR
--- NOTE | 2019-08-09 20:56 | Progress Note ---
DATE: 08/09/2019 Psychiatric Progress Note SUBJECTIVE: The patient evaluated and events noted. The patient is in the room with her . She is doing better. She is oriented to place, but not year. She received p.r.n. Ativan last night, but p.r.n. IM. She does not have any hallucination. As per nursing staff, the patient is less confused, is not combative. She is calm. Discussed with family member. ASSESSMENT: 1. Unspecified psychosis/delirium, improving. 2. History of Alzheimer disease. 3. History of bipolar. PLAN: 1. Continue with Seroquel 250 mg p.o. at bedtime. 2. Continue Ativan and Haldol p.r.n. IM. 3. Continue Ativan p.r.n. p.o. 4. Continue with Seroquel 50 mg p.o. q.6 hours as needed. 5. Continue Aricept 10 mg p.o. at bedtime. 6. Monitor for mood, agitation, and psychosis. Dictated by Sayda Alvarado PA-C Pillo Gee MD QTV/MODL /[id number]
[2019-08-09] MEDS: CRESTOR 10MG PO SCH (21:00)
[2019-08-09] MEDS ORDERED: DONEPEZIL HCL 5 MG TAB PO SCH (21:00)
[2019-08-09] MEDS: QUETIAPINE FUMARATE 100 MG TAB PO SCH (21:00)
[2019-08-10] VITALS: BP 140/67
[2019-08-10] MEDS: DEXTROSE 5%/LACTATED RINGERS 1,000 ML IV SCH (00:16)
[2019-08-10] MEDS: HEPARIN SOD (PORCINE) 5,000 UNIT/ML VIAL SC SCH (00:30)
[2019-08-10 04:00] VITALS: BP 153/81
[2019-08-10 06:20] LABS: ALBUMIN 3.6 g/dL (3.5-5.0); ALBUMIN/GLOBULIN RATIO 1.1 (0.8-2.0); CALCIUM 10.9 mg/dL (8.4-10.2); CREATININE, SERUM 1.15 mg/dL (0.57-1.11)
--- NOTE | 2019-08-10 06:20 | NUR ---
PT RESTED DURING THE NIGHT .DENIES PAIN PT IS STABLE .EMPTIED COLOSTOMY BAG X3 .CALL LIGHT WITH IN REACH .CONTINUE TO MONITOR
--- NOTE | 2019-08-10 07:25 | NUR ---
BEDSIDE REPORT GIVEN TO THE ONCOMING NURSE
[2019-08-10 07:30] VITALS: BP 122/68
--- NOTE | 2019-08-10 07:30 | NUR ---
PATIENT IN BED WITH HEAD OF BED ELEVATED WATCHING TV, NO DISTRESS NOTED. BED IN LOWER POSITION, CALL LIGHT AT REACH.
[2019-08-10 08:01] VITALS: BP 131/62
[2019-08-10] MEDS: PANTOPRAZOLE SOD 40 MG TABEC PO SCH (08:22)
[2019-08-10] MEDS: FLUCONAZOLE 100 MG TAB PO SCH (09:30)
[2019-08-10] MEDS: AMLODIPINE BESYLATE 5 MG TAB PO SCH (09:30)
[2019-08-10] MEDS: TAMSULOSIN HCL 0.4 MG CAP PO SCH (09:30)
[2019-08-10] MEDS: MONTELUKAST SODIUM 10 MG TAB PO SCH (09:30)
--- NOTE | 2019-08-10 10:51 | NUR ---
ST NOTE: Attempted to see pt for ongoing evaluation to upgrade diet. Pt family in room and requesting RN to assess pt's right arm swelling, will return if time permits. Handoff to ROWENA Gomez
[2019-08-10 11:42] VITALS: BP 131/60
[2019-08-10] MEDS: CEFTRIAXONE SOD 1 GM/NS 50 ML 50 ML IV SCH (13:00)
--- NOTE | 2019-08-10 13:02 | NUR ---
ORDERS FOR HOME HEALTH SKILLED NURSE EVAL AND TREAT PT/OT EVAL AND TREAT CHOICE LETTER ON CHART FOR [facility] PH: [phone] FAX: [phone] CALLED AND SPOKE WITH PHILIPPE AT [facility] AND NOTIFIED THAT PT WILL DC HOME TODAY FAXED CLINICAL AND CONFIRMATION REC'D F/U CALL TO ENSURE THAT PHILIPPE REC'D CLINICAL AND IS IN NETWORK WITH PATRICA IRVING
--- NOTE | 2019-08-10 13:05 | NUR ---
PATIENT SITTING AT BED SIDE. ASSISTED WITH LUNCH BY FAMILY MEMBER, NO COUGHING NOTED. CALL LIGHT AT REACH.
--- NOTE | 2019-08-10 15:09 | NUR ---
Spoke with ROWENA Gibson who said pt's family Josué Guerra wants to speak with a case investigator. Left number for CM to call - [phone]. CM called and left a message for callback.
[2019-08-10 16:12] VITALS: BP 139/79
--- NOTE | 2019-08-10 17:30 | NUR ---
PATIENT DISCHARGED HOME. DISCHARGE INSTRUCTIONS AND FOLLOW UP GIVEN TO PATIENT AND , THEY VERBALIZED UNDERSTANDING. PRESCRIPTIONS TO BE SENT TO THEIR PHARMACY PER MD. IV TO LEFT AC REMOVED WITH TIP INTACT. ALL PERSONAL ITEMS TAKEN WITH PATIENT. LEFT UNIT PER WHEEL CHAIR TO FRONT LOBBY IN STABLE CONDITION.
--- NOTE | 2019-08-10 18:55 | Progress Note ---
DATE: 08/10/2019 CHIEF COMPLAINT: Altered mental status, poor p.o. intake, and generalized weakness. SUBJECTIVE: The patient is alert and awake, mentation back to her baseline. Eating better. She denies any chest pain, shortness of breath, nausea, or vomiting. OBJECTIVE: VITAL SIGNS: Temperature 96.9, pulse is 74, respirations 18, blood pressure 131/60, and pulse ox is 97%. GENERAL: No acute distress. HEENT: Normocephalic and atraumatic. NECK: Supple. LUNGS: With decreased breath sounds. CARDIOVASCULAR: Regular rate and rhythm. GI: Soft and nontender. Colostomy bag in place. NEUROLOGIC: Alert, awake, and oriented x1-2. Dementia at baseline. MUSCULOSKELETAL: Moves all extremities. SKIN: Dry and intact. Pressure on the sacrum. PSYCH: Calm. LABORATORY DATA: Sodium 144, potassium 4.0, anion gap 13, BUN is 11, creatinine 1.1, estimated GFR 45, and calcium 10.9. IMPRESSION: 1. Increased altered mental status, now back at baseline. Likely due to urinary tract infection. CT brain was negative, improved with IV antibiotics. 2. Recurrent urinary tract infections. Urine culture positive for Stenotrophomonas maltophilia and Crystal tropicalis. Continue on Rocephin and Diflucan per Urology. 3. Hypertension. Continue amlodipine. 4. High cholesterol. On statin. 5. History of bipolar. Continue to monitor off lithium. Psych has been consulted. 6. Poor appetite. Currently on pureed diet, eating about 50% of her meals. 7. History of dementia. Continue donepezil. 8. Hypercalcemia. Likely due to poor p.o. fluid intake. Encouraged to increase her p.o. water intake. 9. Debility. Continue PT, OT, and Home Health has been consulted. 10. Deep vein thrombosis prophylaxis. We will continue with heparin subcutaneous. PLAN: To continue with antibiotics. Medically stable and can be discharged to home with Home Health once cleared by Psych. Dictated by LADARIUS Keys Promise Clark MD MY/MODL /[id number]
--- NOTE | 2019-08-13 09:16 | Progress Note ---
DATE: 08/10/2019 Psychiatric Progress Note . SUBJECTIVE: The patient is in the room. She states she is doing better. She is less confused. I have discussed with her as well. He said that she is doing better as well. She did not receive any p.r.n. medications yesterday. She is not combative. ASSESSMENT: 1. Unspecified psychosis/delirium, improved. 2. History of Alzheimer and bipolar. PLAN: 1. Continue with Seroquel 25 mg p.o. at bedtime. 2. Continue Ativan p.r.n. and IM and p.o. 3. Continue with Haldol p.r.n. IM. 4. Continue with Seroquel p.r.n. p.o. 5. Continue Aricept at bedtime. 6. Monitor for mood, agitation, and psychosis. Dictated by Sayda Alvarado PA-C Pillo Gee MD QTV/MODL /[id number]
== END 2019-08-10 17:23 | disposition home health service (06) | DRG 758 ==
LOC: ER 11:40 → ERHOLD 13:45 → MED/SURG3 17:50
PROVIDERS: ADMIT Urology; ATTEND Urology
DX: B37.49 Other urogenital candidiasis (principal); G93.40 Encephalopathy, unspecified; I10 Essential (primary) hypertension; R13.10 Dysphagia, unspecified; G30.9 Alzheimer's disease, unspecified; F02.80 Dementia in other diseases classified elsewhere, unspecified severity, without behavioral disturbance, psychotic disturbance, mood disturbance, and anxiety; F31.9 Bipolar disorder, unspecified; E78.00 Pure hypercholesterolemia, unspecified; E83.52 Hypercalcemia; R63.0 Anorexia; Z68.36 Body mass index [BMI] 36.0-36.9, adult; F29 Unspecified psychosis not due to a substance or known physiological condition
CPT/HCPCS: 36415; 70450; 71045; 71046; 74176; 80053; 80178; 81001; 82550; 82553; 83735; 83880; 84484; 85025; 85610; 85730; 87040; 87086; 87186; 93005; 97139; 99284; J0696; J1630; J1644; J2060